=== PATIENT | female | born 1975 | race Caucasian/White ===

== ENCOUNTER 2018-11-05 11:43 | Emergency (ER) | payer SELFPAY | END 2018-11-05 16:07 | disposition home or self-care (01) | LOC: FTE 11:43 | DX: S51.841A Puncture wound with foreign body of right forearm, initial encounter (principal); W45.8XXA Other foreign body or object entering through skin, initial encounter; Y92.9 Unspecified place or not applicable | CPT/HCPCS: 99283 ==